=== PATIENT | male | born 1985 ===

== ENCOUNTER 2016-10-25 19:59 | Emergency (ER) | payer BC, OTHER ==
[2016-10-25] MEDS ORDERED: predniSONE TAB* 20 MG PO ONE (20:48)
--- NOTE | 2016-10-25 20:56 | UC ---
Skin Complaint HPI - HPI Summary HPI Summary: A little over a week ago [place] had to brace self on an uneven embankment. Thinks he touched some poison chichi. Within a day or so developed three small bumps on dorsum of L hand. Over the next several days area was intensely itchy and it turned into large confluent area of blisters. A couple have opened up and drained. No pain, redness, or streaking from the area. - History of Current Complaint Chief Complaint: UCSkin Time Seen by Provider: 10/25/16 20:30 Stated Complaint: RASH Hx Obtained From: Patient Onset/Duration: Gradual Onset, Lasting Days Timing: Constant Onset Severity: Mild Current Severity: Moderate Location: Discrete Character: Swelling, Pruritus, Raised Aggravating: Touch Alleviating: Cold, OTC Meds Associated Signs & Symptoms: Positive: Rash - Allergy/Home Medications Allergies/Adverse Reactions: Allergies Allergy/AdvReac Type Severity Reaction Status Date / Time Shellfish Allergy Allergy Severe Anaphylatic Verified 10/25/16 20:05 Shock Home Medications: Home Medications Melatonin 1 mg PO 10/25/16 [History] Review of Systems Constitutional: Negative Skin: Rash Eyes: Negative ENT: Negative Respiratory: Negative Cardiovascular: Negative Gastrointestinal: Negative Genitourinary: Negative Motor: Negative Neurovascular: Negative Musculoskeletal: Negative Neurological: Negative Psychological: Negative All Other Systems Reviewed And Are Negative: Yes PMH/Surg Hx/FS Hx/Imm Hx Previously Healthy: Yes - Surgical History Surgical History: Yes Surgery Procedure, Year, and Place: skin grafts from [place] age 3 (bilat legs) - Family History Known Family History: Positive: Other - noncontributory - Social History Lives: Alone Alcohol Use: Weekly Alcohol Amount: 7-10 DRINKS/WEEK Substance Use Type: None Smoking Status (MU): Current Every Day Smoker Type: Cigarettes Amount Used/How Often: 5 CIG/DAY Cessation Counseling: Patient Advised to Stop Physical Exam Triage Information Reviewed: Yes Appearance: Well-Appearing, No Pain Distress, Well-Nourished Vital Signs: Initial Vital Signs Temp 100.5 F 10/25/16 20:01 Pulse 73 10/25/16 20:01 Resp 16 10/25/16 20:01 BP 150/94 10/25/16 20:01 Pulse Ox 100 10/25/16 20:01 Vital Signs Reviewed: Yes Eye Exam: Normal, Other - PERRL Eyes: Positive: Conjunctiva Clear ENT Exam: Normal ENT: Positive: Normal ENT inspection, Hearing grossly normal, Pharynx normal, TMs normal Dental Exam: Normal Neck exam: Normal Neck: Positive: Supple, Nontender, No Lymphadenopathy Respiratory Exam: Normal Respiratory: Positive: Chest non-tender, Lungs clear, Normal breath sounds, No respiratory distress, No accessory muscle use Cardiovascular Exam: Normal Cardiovascular: Positive: RRR, No Murmur Musculoskeletal Exam: Normal Neurological Exam: Normal Neurological: Positive: Alert Psychological Exam: Normal Skin Exam: Other - single confluent group of vesicles/bullae on dorsum of L hand , approx 10cm x 6 cm Course/Dx - Differential Diagnoses - Skin Complaint Differential Diagnoses: Contact Dermatitis, Local Allergic Reaction, Poison Chichi , Poison [place], Varicella Zoster - Diagnoses Provider Diagnoses: L hand contact dermatitis Discharge - Discharge Plan Condition: Stable Disposition: HOME Prescriptions: Triamcinolone 0.5% CREAM(NF) [Triamcinolone 0.5% CREAM*] 1 applic TOPICAL TID # 1 tube predniSONE TAB* [Deltasone TAB*] 40 mg PO DAILY #8 tab Patient Education Materials: Poison Chichi (ED) Referrals: No Primary Care Phys,NOPCP [Primary Care Provider] - Additional Instructions: You can keep using the topical medicine you have been using until your symptoms are more tolerable, then switch to the steroid cream.
== END 2016-10-25 21:09 | disposition home or self-care (01) ==
LOC: UCEAST 19:59
DX: L25.9 Unspecified contact dermatitis, unspecified cause (principal); Z72.0 Tobacco use
CPT/HCPCS: 99212; G0463; J7512